=== PATIENT | female | born 1970 | race Hispanic/Latino ===

== ENCOUNTER 2017-06-23 11:13 | Emergency (ER) | payer SELFPAY ==
[~2017-06-23 11:13] MED LIST: Sodium Chloride 0.9% 1,000 ML BAG ONE; Sodium Chloride 0.9% 100 ML BAG ONE
[2017-06-23] MEDS ORDERED: Piperacillin/Tazobactam 3.375 GM VIAL ONE (11:36)
[2017-06-23 11:59] LABS: #Basophils 0.2 thou/uL (0.0-0.2); #Eosinphils 0.1 thou/uL (0.0-0.7); #Lymphocytes 2.3 thou/uL (1.20-3.40); #Monocytes 0.8 thou/uL (0.11-0.59); %Basophils 1.2 % (0.0-1.0); %Eosinophils 0.9 % (0.0-10.0); %Lymphocytes 15.6 % (21.0-51.0); %Monocytes 5.6 % (0.0-10.0); %Neutrophils 76.6 % (42.0-75.0); Hemoglobin 14.1 g/dL (12.0-16.0); Mean Corpuscular Hemoglobin 30.6 pg (27.0-31.0); Mean Corpuscular Volume 89.8 fl (81.0-99.0); Mean Platelet Volume 10.1 fL (7.4-10.4); Platelet Count 370 thou/uL (130-400); RBC Distribution Width 10.5 % (11.5-14.5); Red Blood Cell (RBC) Count 4.61 mill/uL (4.20-5.40); White Blood Cell (WBC) Count 14.4 thou/uL (4.8-10.8)
--- NOTE | 2017-06-23 12:13 | RAD ---
LEFT FOOT THREE VIEWS: HISTORY: Left foot pain. Ulceration. Toe injury. FINDINGS: Soft tissue gas and swelling is evident about the great toe. There is erosion of the lateral margin of the distal tuft. Pes planus is apparent on the lateral view. Lisfranc joint alignment is anato shai. There is scattered osteophytosis. IMPRESSION: Osseous erosion involving the distal tuft of the left big toe is consistent with but not specific fo r osteomyelitis involvement, in the setting of infection. Clinical correlation regarding other sign s and symptoms of osteomyelitis is required. POS: RANDAL
[2017-06-23 12:15] LABS: ALT (SGPT) 14 U/L (8-55); AST (SGOT) 14 U/L (5-34); Albumin 3.4 g/dL (3.5-5.0); Alkaline Phosphatase 110 U/L (40-150); Anion Gap 16 mmol/L (10-20); BUN (Urea Nitrogen) 15 mg/dL (7.0-18.7); Bilirubin, Total 0.4 mg/dL (0.2-1.2); Calc. Creatinine Clearance 0 mL/min (70-130); Calcium 8.4 mg/dL (7.8-10.44); Carbon Dioxide 23 mmol/L (22-29); Chloride 99 mmol/L (98-107); Estimated GFR-MDRD 86; Globulin 3.7 g/dL (2.4-3.5); Glucose 380 mg/dL (70-105); Potassium 4.6 mmol/L (3.5-5.1); Protein, Total 7.1 g/dL (6.0-8.3); Sodium 133 mmol/L (136-145)
[2017-06-23 12:50] LABS: BHCG - Serum Negative (NEGATIVE); Pregs Control Background? CLEAR/WHITE (CLR/WHITE); Pregs Control Bar Appear? YES (CONTROL BAR)
[2017-06-23] MEDS ORDERED: Insulin Regular 300 UNITS/3 ML VIAL ONE (12:54)
[2017-06-23 13:20] LABS: Bilirubin Negative (Negative); Blood, Urine Trace (Negative); Clarity Clear (Clear); Glucose, Urine (Dipstick) 500 mg/dL (Negative); Leukocyte Negative (Negative); Nitrite Negative (Negative); Protein, Urine (Dipstick) Negative (Neg-Trace); Urobilinogen 0.2 mg/dL (0.2-1.0); pH, Urine 5.5 (5.0-9.0)
[2017-06-23 13:23] LABS: Bacteria/HPF Rare-Few HPF (None Seen); RBC/HPF 0-3 HPF (0-3); WBC/HPF 0-3 HPF (0-3); Yeast-All Forms Rare HPF (None Seen)
== END 2017-06-23 13:51 | disposition short-term general hospital (02) ==
LOC: MADERS 11:13
DX: L03.116 Cellulitis of left lower limb (principal); E11.9 Type 2 diabetes mellitus without complications
CPT/HCPCS: 36416; 80053; 81003; 81015; 84703; 85025; 87040; 96365; 96368; 96372; J1815; J2543; J3370; J7050

== ENCOUNTER 2018-06-14 08:55 | Emergency (ER) | payer MEDICAID, SELFPAY ==
[~2018-06-14 08:55] MED LIST changes: -Sodium Chloride 0.9% 100 ML BAG ONE
[2018-06-14] MEDS ORDERED: Sulfameth/Trimethoprim DS 800-160mg TAB ONE (10:17)
[2018-06-14] MEDS ORDERED: Clindamycin/D5W 600 mg/50 ml Premix Bag ONE (10:17)
[2018-06-14] MEDS ORDERED: Cephalexin 500 MG CAP ONE (10:17)
--- NOTE | 2018-06-14 10:25 | RAD ---
THREE VIEWS LEFT FOOT: Comparison: 06-23-17 Indication: History of puncture wound with fever. FINDINGS: There has been interval healing of the distal tuft erosion seen on the comparison study. No new activ e area of osteolysis is evident. Lisfranc alignment is preserved. No radiopaque foreign body is noted . Enthesopathic change is seen off of the calcaneus. Calcifications are seen in the soft tissues. IMPRESSION: No acute osseous abnormality. No radiopaque foreign body. POS: JANICE
[2018-06-14 10:49] LABS: Band 4 % (5-11); Lymphocytes 10 % (21-51); MDiff Complete? YES; Mean Corpuscular Hemoglobin 30.5 pg (27.0-31.0); Mean Corpuscular Volume 89.9 fL (78.0-98.0); Monocytes 2 % (0-10); Neutrophil 84 % (42-75); PLT Morphology Comment Appears Adequate; Platelet Count 340 thou/uL (130-400); RBC Distribution Width 10.6 % (11.5-14.5); Red Blood Cell (RBC) Count 4.25 mill/uL (4.20-5.40); White Blood Cell (WBC) Count 20.2 thou/uL (4.8-10.8)
[2018-06-14 10:50] LABS: ALT (SGPT) 13 U/L (8-55); AST (SGOT) 10 U/L (5-34); Albumin 3.2 g/dL (3.5-5.0); Alkaline Phosphatase 141 U/L (40-150); Anion Gap 14 mmol/L (10-20); BUN (Urea Nitrogen) 13 mg/dL (7.0-18.7); Bilirubin, Total 0.6 mg/dL (0.2-1.2); Calc. Creatinine Clearance 0 mL/min (70-130); Calcium 9.5 mg/dL (7.8-10.44); Carbon Dioxide 25 mmol/L (22-29); Chloride 97 mmol/L (98-107); Estimated GFR-MDRD 74; Globulin 4.7 g/dL (2.4-3.5); Glucose 385 mg/dL (70-105); Potassium 4.4 mmol/L (3.5-5.1); Protein, Total 7.9 g/dL (6.0-8.3); Sodium 132 mmol/L (136-145)
[2018-06-14] MEDS ORDERED: Insulin Regular 300 UNITS/3 ML VIAL ONE (11:29)
== END 2018-06-14 13:10 | disposition short-term general hospital (02) ==
LOC: MADERS 08:55
DX: S91.332A Puncture wound without foreign body, left foot, initial encounter (principal); L03.116 Cellulitis of left lower limb; E11.65 Type 2 diabetes mellitus with hyperglycemia; W22.8XXA Striking against or struck by other objects, initial encounter
CPT/HCPCS: 36416; 80053; 83605; 85025; 87040; 93005; 96365; 96375; J1815; J3490; J7050

== ENCOUNTER 2018-07-04 10:25 | Emergency (ER) | payer MEDICAID | END 2018-07-04 10:41 | disposition left against medical advice (07) | LOC: MADERS 10:25 | DX: Z53.21 Procedure and treatment not carried out due to patient leaving prior to being seen by health care provider (principal) ==

== ENCOUNTER 2018-12-26 10:30 | Emergency (ER) | payer MEDICAID, SELFPAY ==
--- NOTE | 2018-12-26 11:35 | RAD ---
RIGHT FOOT 3 VIEWS: Date: 12/26/18 HISTORY: Infection. FINDINGS: Bandage material overlies the great toe. There is very extensive soft tissue abnormal gas, including the first, second, third, and fourth toes extending to the level of the midfoot of the first and seco nd toes. Bony destructive changes noted involving the distal phalanx of the first toe with decreased soft tissue density possibly related to osteomyelitis. Minimal focal soft tissue swelling of the dist al second toe. IMPRESSION: Very extensive abnormal soft tissue gas involving the first, second, third, and fourth toes, extendin g to the midfoot at the level of the first and second toes. Some decreased soft tissue, as well as so me bony destructive changes of the distal phalanx of the great toe. Minimal focal soft tissue swellin g of the distal second toe. Findings are consistent with extensive soft tissue infection and possible associated residual osteomyelitis of the distal first toe. POS: OFF
[2018-12-26] MEDS ORDERED: Sodium Chloride 0.9% 1,000 ML ONE (11:36)
[2018-12-26] MEDS ORDERED: Sodium Chloride 0.9% 250 ML 250 ML ONE (11:36)
[2018-12-26] MEDS ORDERED: Sodium Chloride 0.9% 100 ML ONE (11:36)
[2018-12-26] MEDS ORDERED: Piperacillin/Tazobactam 4.5 GM VIAL ONE (11:36)
[2018-12-26 11:41] LABS: #Basophils 0.1 thou/uL (0.0-0.2); #Lymphocytes 1.7 thou/uL (1.20-3.40); #Monocytes 0.5 thou/uL (0.11-0.59); %Basophils 0.5 % (0.0-1.0); %Eosinophils 0.3 % (0.0-10.0); %Lymphocytes 9.2 % (21.0-51.0); %Monocytes 2.9 % (0.0-10.0); %Neutrophils 87.1 % (42.0-75.0); Hemoglobin 10.3 g/dL (12.0-16.0); Mean Corpuscular HGB CONC 32.2 g/dL (32.0-36.0); Mean Corpuscular Hemoglobin 28.7 pg (27.0-31.0); Mean Platelet Volume 6.6 fL (7.4-10.4); Platelet Count 416 thou/uL (130-400); White Blood Cell (WBC) Count 18.4 thou/uL (4.8-10.8)
[2018-12-26 11:55] LABS: ALT (SGPT) 20 U/L (8-55); AST (SGOT) 18 U/L (5-34); Albumin 2.7 g/dL (3.5-5.0); Alkaline Phosphatase 205 U/L (40-150); Anion Gap 14 mmol/L (10-20); BUN (Urea Nitrogen) 19 mg/dL (7.0-18.7); Bilirubin, Total 0.2 mg/dL (0.2-1.2); Calc. Creatinine Clearance 0 mL/min (70-130); Carbon Dioxide 28 mmol/L (22-29); Chloride 93 mmol/L (98-107); Estimated GFR-MDRD 74; Globulin 5.7 g/dL (2.4-3.5); Glucose 462 mg/dL (70-105); Potassium 4.6 mmol/L (3.5-5.1); Protein, Total 8.4 g/dL (6.0-8.3); Sodium 130 mmol/L (136-145)
[2018-12-26] MEDS ORDERED: Insulin Regular 300 UNITS/3 ML VIAL ONE (12:16)
[2018-12-26] MEDS ORDERED: Admixture Fee 1 EACH ONE (12:16)
[2018-12-26] MEDS ORDERED: Fentanyl 100 MCG/2 ML VIAL ONE (12:16)
== END 2018-12-26 15:34 | disposition short-term general hospital (02) ==
LOC: MADERS 10:30
DX: I96 Gangrene, not elsewhere classified (principal); M72.6 Necrotizing fasciitis; E11.65 Type 2 diabetes mellitus with hyperglycemia
CPT/HCPCS: 36415; 80053; 83605; 84484; 85025; 87040; 93005; 96361; 96365; 96366; 96375; J1815; J2543; J3010; J3370; J7050

== ENCOUNTER 2019-06-05 14:33 | Inpatient (IN) | payer SELFPAY ==
[~2019-06-05 14:33] MED LIST changes: +Sodium Chloride 0.9% 100 ML BAG ONE
[2019-06-05 15:46] LABS: #Basophils 0.1 thou/uL (0.0-0.2); #Eosinphils 0.2 thou/uL (0.0-0.7); #Lymphocytes 2.2 thou/uL (1.20-3.40); #Monocytes 0.5 thou/uL (0.11-0.59); #Neutrophils 4.7 thou/uL (1.40-6.50); %Basophils 1.4 % (0.0-1.0); %Eosinophils 2.1 % (0.0-10.0); %Lymphocytes 28.7 % (21.0-51.0); %Neutrophils 60.8 % (42.0-75.0); Hemoglobin 11.8 g/dL (12.0-16.0); Mean Corpuscular HGB CONC 32.5 g/dL (32.0-36.0); Mean Corpuscular Hemoglobin 28.7 pg (27.0-31.0); Mean Corpuscular Volume 88.2 fL (78.0-98.0); Mean Platelet Volume 6.6 fL (7.4-10.4); Platelet Count 456 thou/uL (130-400); RBC Distribution Width 11.5 % (11.5-14.5); Red Blood Cell (RBC) Count 4.12 mill/uL (4.20-5.40); White Blood Cell (WBC) Count 7.7 thou/uL (4.8-10.8)
--- NOTE | 2019-06-05 15:58 | RAD ---
RIGHT TIBIA AND FIBULA TWO VIEWS: Indications: Infection anterior lower leg. FINDINGS: Patient has a amputation at the distal tibia/fibular shaft. No focal lytic or destructive process. No plain film evidence of osteomyelitis. Bones are mildly oste openic with mild degenerative change at the knee. Soft tissues appear unremarkable. No evidence of so ft tissue gas. IMPRESSION: No plain film evidence of osteomyelitis. POS: [facility]
[2019-06-05 16:05] LABS: ALT (SGPT) 15 U/L (8-55); AST (SGOT) 11 U/L (5-34); Albumin 3.2 g/dL (3.5-5.0); Alkaline Phosphatase 109 U/L (40-150); Anion Gap 16 mmol/L (10-20); BUN (Urea Nitrogen) 17 mg/dL (7.0-18.7); Bilirubin, Total 0.2 mg/dL (0.2-1.2); Calc. Creatinine Clearance 0 mL/min (70-130); Calcium 9.6 mg/dL (7.8-10.44); Carbon Dioxide 26 mmol/L (22-29); Chloride 96 mmol/L (98-107); Estimated GFR-MDRD 51; Glucose 502 mg/dL (70-105); Potassium 4.9 mmol/L (3.5-5.1); Protein, Total 8.2 g/dL (6.0-8.3); Sodium 133 mmol/L (136-145)
[2019-06-05] MEDS ORDERED: Insulin Regular 300 UNITS/3 ML VIAL ONE (16:19)
[2019-06-05] MEDS ORDERED: Sodium Chloride 0.9% 250 ML 250 ML ONE (16:19)
[2019-06-05] MEDS ORDERED: Piperacillin/Tazobactam 3.375 GM VIAL ONE ×3 (16:19→20:16)
[2019-06-05] MEDS ORDERED: Acetaminophen ER (8hr) 650 MG TAB PO PRN (18:42)
[2019-06-05] MEDS ORDERED: Acetaminophen/Codeine 30-300mg Tablet PO PRN (18:43)
[2019-06-05] MEDS ORDERED: Dextrose 50% Abboject 50 ML SYRINGE SLOW IVP PRN (18:46)
[2019-06-05] MEDS ORDERED: Insulin Regular 300 UNITS/3 ML VIAL SC PRN (18:46)
[2019-06-05] MEDS ORDERED: Dextrose 5% in Water 1,000 ML IV PRN (18:46)
[2019-06-05] MEDS: Insulin Regular 300 UNITS/3 ML VIAL SC PRN ×3 (19:17→21:40)
[2019-06-05] MEDS ORDERED: Insulin Glargine 20 UNITS in Pre-Filled Syringe 1 EACH SC SCH (21:00)
[2019-06-05] MEDS: Piperacillin/Tazobactam 3.375 GM in Sodium Chloride 0.9% 100 ML IVPB SCH (21:30)
[2019-06-05] MEDS: Lantus 1000 UNITS/10 ML VIAL SC SCH (21:39)
[2019-06-06] MEDS: Piperacillin/Tazobactam 3.375 GM in Sodium Chloride 0.9% 100 ML IVPB SCH ×4 (04:35→21:26)
--- NOTE | 2019-06-06 07:24 | HP ---
PRIMARY CARE PHYSICIAN: Arlene Sellers MD REASON FOR ADMISSION: Infected wound, hyperglycemia, poorly controlled diabetes. HISTORY OF PRESENT ILLNESS AND HOSPITAL COURSE: Ms. Patrick is a 49-year-old female with history of poorly controlled diabetes, noncompliance to the medications and medical recommendations. The patient has significant history of nonhealing ulcers secondary to poorly controlled diabetes and noncompliance. She underwent status post right BKA few months ago for this secondary to nonhealing ulcer. The patient was initially seen in the clinic a week ago secondary to enlarging wound on the right knee. The patient reports that she is not using her walker nor crutches at home since her right BKA has healed up. She states that she is uncomfortable transferring herself with the use of the medical equipments. The patient transfers herself using her knees instead. She sustained skin abrasions in both anterior knees, but the right anterior knee wound got infected. When she initially presented to the clinic about a week ago, she was started on oral Bactrim. The patient presented to [facility] ER today with worsening wound. reports that the wound on the right anterior knee- is now draining with yellowish discharge. On initial evaluation at the ER, the patient was afebrile with stable vital signs. Her labs showed no significant leukocytosis with low sodium and elevated glucose at 502. The patient admits that she is noncompliant with her oral hypoglycemic agents and also stopped her insulin secondary to not feeling well, and inability to get the prescriptions due to financial constraints. After receiving 7 units of IV insulin in the ER, the patient's blood sugar went down to 404. The patient was subsequently admitted to [facility] for IV antibiotic treatment for right knee infection and leg cellulitis. Upon admission to the floor, blood sugar was 334. The patient reports no significant issues at this time. Denies chest pain, shortness of breath, pain, nor fever. When seen on the floor , the patient was with her 14-year-old son, who acts as her primary elementary esl teacher and track moving machine operator. PAST MEDICAL HISTORY: 1. Poorly controlled diabetes secondary to incomplete adherence to medications. 2. Anemia. 3. Recurrent nonhealing ulcers leading to amputation of the right foot, status post right BKA. 4. Dyslipidemia. 5. Hypertension. PAST SURGICAL HISTORY: Status post BKA in January 2019, [facility]. FAMILY HISTORY: Mother , diagnosed with diabetes. Father , diagnosed with alcohol abuse. The patient's spouse is alive, currently in alf. The patient has a 14-year- old son who lives with her and acts as her primary elementary esl teacher. SOCIAL HISTORY: The patient denies smoking, alcohol, or illicit drug use. Language, [place] Citizen speaking only. ALLERGIES: NKDA. MEDICATIONS: 1. Bactrim DS one tablet p.o. b.i.d. 2. The patient was previously on metformin 1000 mg b.i.d.. lisinopril 20 mg p.o. daily, glimepiride p.o. daily, but not been taking. She was also previously on; 1. Insulin Levemir 27 units daily. 2. Novolin 70/30 per [facility]SI. REVIEW OF SYSTEMS: GENERAL: Denies fever, chills. Reports general weakness and fatigue. HEENT: No acute visual changes or hearing changes. RESPIRATORY: No shortness of breath, pain with breathing, sputum production, or wheezing. CARDIAC: Denies chest pain, paroxysmal nocturnal dyspnea, dyspnea on exertion, or palpitations. GI: No nausea, vomiting, abdominal pain, diarrhea, constipation, or rectal bleeding. GENITOURINARY: No dysuria, hematuria, frequency, urgency, or incontinence. MUSCULOSKELETAL: Reports knee joint pains. No myalgias. SKIN: As per HPI. No other rashes. No pruritus. NEUROLOGIC: No focal numbness, focal weakness. No seizures. No tics or tremors. PSYCHIATRIC: Denies depressive symptoms, anxiety, insomnia, or hallucinations. PHYSICAL EXAMINATION: VITAL SIGNS: Blood pressure 133/66, temperature 97.8, pulse 104, respiratory rate 18, O2 saturations 96% on room air, weight 176 pounds and 9 ounces. GENERAL: The patient is awake, alert, and oriented x3. German-speaking only. Son acts as the track moving machine operator. Comfortable in bed. No acute respiratory distress. HEENT: Normocephalic, atraumatic. PERRL. Intact EOM. Anicteric sclerae. Oral mucosa is moist. NECK: Supple. No LAD. No JVD. No bruit. CHEST: Normal excursion. Clear to auscultation bilaterally. CARDIAC: Regular rhythm. Normal S1, S2. No murmurs. ABDOMEN: Flat, soft. Normoactive bowel sounds. Nondistended, nontender. No rebound or guarding. Negative CVA tenderness bilaterally. EXTREMITIES: Status post right BKA. Right anterior knee with scab wound measuring 6 x 10 with area of surrounding erythema with diffuse erythema and mild edema of the right distal leg up to the knee. The distal stump looks clean, dry and intact. Left anterior knee has small superficial skin abrasions. No signs of infection. Negative Homans signs. Negative edema. NEUROLOGIC: Nonfocal. DTRs 2+. Gait unable to ambulate. Memory normal. Cranial nerves intact. SKIN: As per HPI, moist and warm. Good skin turgor and elasticity. PSYCHIATRIC: Appropriate mood and affect. Oriented x3. DIAGNOSTIC DATA: X-ray of the right lower extremity was negative. No fracture , no foreign body. No signs of osteomyelitis by plain film per Radiology. LABORATORY DATA: WBC 7.7, hemoglobin 11.8, hematocrit 36.4, platelets 456. Sodium 133, potassium 4.9, chloride 96, BUN 17, creatinine 1.13, anion gap 16, estimated GFR 51, glucose 502, lactic acid 1.8, and calcium 9.6. Liver function tests within normal limits. Albumin 3.2. ASSESSMENT: 1. Right anterior knee abscess and cellulitis. 2. Diabetes type 2, poorly controlled. 3. History of noncompliance. 4. Gait abnormality secondary to imbalance. 5. History of nonhealing ulcers, status post below-knee amputation, right. 6. Poor social support. PLAN: 1. The patient is admitted to [place] for inpatient management of right knee abscesses/leg cellulitis, and poorly controlled diabetes secondary to poor medical compliance. 2. The patient was started on Zosyn for empiric treatment from the ER and will continue q.6 hours pending blood and wound culture results. The patient is afebrile. No significant evidence of bacteremia at this point. We will continue IVF hydration. Medications per home list is continued as well. 3. Accu-Chek q.1 for first 4 hours, then before meals and at bedtime. 4. Sliding scale with aggressive algorithm to include bedtime coverage with Humalog. 5. Serial lab monitoring. No evidence of ketoacidosis at this time, but we will continue to close monitor. Hypoglycemic precautions. 6. Diet, 2000 kilocalorie ADA. 7. Activity, to use rolling walker at all times. 8. PT evaluation and treat and wound care evaluation. 9. Plan is to continue IV antibiotic coverage and then may switch to p.o. once appropriate. We will refer to 7th grade social studies teacher for home resources. 10. GI prophylaxis with Protonix and DVT prophylaxis with Lovenox. 11. Further recommendations depending on the hospital course. 12. Code status: the patient reports full code. Job ID: [id number] MTDD
[2019-06-06 07:41] LABS: Anion Gap 13 mmol/L (10-20); BUN (Urea Nitrogen) 16 mg/dL (7.0-18.7); Calc. Creatinine Clearance 106 mL/min (70-130); Calcium 8.7 mg/dL (7.8-10.44); Carbon Dioxide 25 mmol/L (22-29); Chloride 102 mmol/L (98-107); Estimated GFR-MDRD 76; Glucose 230 mg/dL (70-105); Potassium 4.8 mmol/L (3.5-5.1); Sodium 135 mmol/L (136-145)
[2019-06-06] MEDS: Lisinopril 5 MG TAB PO SCH (08:03)
[2019-06-06] MEDS: glyBURIDE 5 MG TAB PO SCH ×2 (08:03→16:14)
[2019-06-06] MEDS: metFORMIN 500 MG TAB PO SCH ×2 (08:03→16:14)
[2019-06-06] MEDS: Aspirin 81 mg Enteric Coated Tablet PO SCH (08:10)
[2019-06-06] MEDS: Enoxaparin Sodium 40 MG/0.4 ML SYRINGE SC SCH (08:10)
[2019-06-06] MEDS: Insulin Regular 300 UNITS/3 ML VIAL SC PRN ×2 (08:14→12:12)
[2019-06-06] MEDS ORDERED: Ondansetron ODT 4 MG TAB SL PRN (09:13)
[2019-06-06] MEDS ORDERED: Sodium Chloride 0.9% 1,000 ML IV SCH (09:15)
[2019-06-06 12:17] LABS: Hemoglobin A1c 13.5 % (4.0-6.0)
[2019-06-06 13:54] LABS: Pregnancy Test - Urine (BHCG) Negative (Negative); Pregu Control Background? CLEAR/WHITE (CLR/WHITE); Pregu Control Bar Appear? YES (CONTROL BAR); Specific Gravity 1.014 (1.002-1.036)
[2019-06-06] MEDS: Lantus 1000 UNITS/10 ML VIAL SC SCH (21:31)
[2019-06-07] MEDS: Piperacillin/Tazobactam 3.375 GM in Sodium Chloride 0.9% 100 ML IVPB SCH ×4 (04:24→21:02)
[2019-06-07] MEDS: Lisinopril 5 MG TAB PO SCH (08:30)
[2019-06-07] MEDS: Saccharomyces boulardii 250 MG CAP PO SCH (08:31)
[2019-06-07] MEDS: glyBURIDE 5 MG TAB PO SCH ×2 (08:31→16:45)
[2019-06-07] MEDS: Aspirin 81 mg Enteric Coated Tablet PO SCH (08:31)
[2019-06-07] MEDS: metFORMIN 500 MG TAB PO SCH ×2 (08:31→16:46)
[2019-06-07] MEDS: Enoxaparin Sodium 40 MG/0.4 ML SYRINGE SC SCH (08:31)
[2019-06-07] MEDS: Insulin Regular 300 UNITS/3 ML VIAL SC PRN ×3 (08:32→16:42)
[2019-06-07] MEDS: Lantus 1000 UNITS/10 ML VIAL SC SCH (21:03)
[2019-06-08] MEDS: Piperacillin/Tazobactam 3.375 GM in Sodium Chloride 0.9% 100 ML IVPB SCH (03:46)
[2019-06-08] MEDS: metFORMIN 500 MG TAB PO SCH ×2 (08:37→16:46)
[2019-06-08] MEDS: glyBURIDE 5 MG TAB PO SCH ×2 (08:37→16:46)
[2019-06-08] MEDS: Enoxaparin Sodium 40 MG/0.4 ML SYRINGE SC SCH (08:38)
[2019-06-08] MEDS: Saccharomyces boulardii 250 MG CAP PO SCH (08:38)
[2019-06-08] MEDS: Lisinopril 5 MG TAB PO SCH (08:38)
[2019-06-08] MEDS: Aspirin 81 mg Enteric Coated Tablet PO SCH (08:38)
[2019-06-08] MEDS: Insulin Regular 300 UNITS/3 ML VIAL SC PRN ×2 (08:39→11:51)
[2019-06-08] MEDS: Lantus 1000 UNITS/10 ML VIAL SC SCH (20:43)
[2019-06-09] MEDS: Lisinopril 5 MG TAB PO SCH (08:38)
[2019-06-09] MEDS: Saccharomyces boulardii 250 MG CAP PO SCH (08:38)
[2019-06-09] MEDS: Enoxaparin Sodium 40 MG/0.4 ML SYRINGE SC SCH (08:39)
[2019-06-09] MEDS: Aspirin 81 mg Enteric Coated Tablet PO SCH (08:39)
[2019-06-09] MEDS: metFORMIN 500 MG TAB PO SCH (08:39)
[2019-06-09] MEDS: glyBURIDE 5 MG TAB PO SCH (08:39)
[2019-06-09 10:04] VITALS: BMI 30.9
[2019-06-09] MEDS: Insulin Regular 300 UNITS/3 ML VIAL SC PRN (12:07)
[2019-06-09 12:34] VITALS: BP 141/82; TEMP 97.2
--- NOTE | 2019-06-10 02:49 | DIS ---
DATE OF ADMISSION: 06/05/2019 DATE OF DISCHARGE: 06/09/2019 PRIMARY CARE PHYSICIAN: Arlene Sellers MD DISCHARGE DIAGNOSES: 1. Left lower leg abscess/cellulitis, infected with methicillin-susceptible Staphylococcus aureus. 2. Diabetes, poorly controlled. 3. Medical noncompliance. 4. Abnormality of gait. 5. History of below-knee amputation secondary to nonhealing ulcer of the left foot. CONDITION ON DISCHARGE: Stable. DISPOSITION: Home with son. MEDICATIONS: 1. Cipro 500 mg p.o. b.i.d. 2. Levemir 20 units subcu daily. 3. Metformin 1000 mg p.o. b.i.d. 4. Glipizide 5 mg p.o. daily. 5. Lisinopril 5 mg p.o. daily. 6. Continue previous home medication of Bactrim DS , 1 atblet p.o. BID. DISCHARGE INSTRUCTIONS: 1. Diet: 2000 kilocalorie ADA. 2. Activity: To use rolling and/or wheelchair for ambulation. 3. Fall precautions. 4. Wound care with saline solution and Xeroform covered with Kerlix and Lamont wrap every Wednesday, Wednesday, and Wednesday. 5. Followup: Follow up with Dr. Sellers in 1 week, sooner with concerns. 6. ER precautions. HISTORY OF THE PRESENT ILLNESS AND HOSPITAL COURSE: Ms. Patrick is a 49-year- old female with history of poorly-controlled diabetes, history of noncompliance to medications, and medical recommendations secondary to poor social support and financial constraints. The patient has significant history of nonhealing ulcer secondary to poorly-controlled diabetes. She has had right BKA a few months ago prior to admission secondary to nonhealing ulcer of the foot. The patient reported that since she did well with her BKA, she had been using her knees to ambulate at home as she is tired of using her walker and crutches. The patient developed a skin abrasion on both knees, right greater than the left. The right wound has become infected. She was initially seen in the clinic a week prior to this admission and was started on Bactrim. The patient went back to [facility] ER on 06/05/2019 as the wound has worsened and has drained yellowish mucopurulent discharge associated with swelling and redness of the right lower leg. The patient was subsequently admitted to [facility] for IV antibiotic therapy. She was started on Zosyn. Her oral hypoglycemic agents and long acting basal insulin were continued while in the hospital. Her blood sugar has been much controlled while on current medications. Her wound culture came back positive for MSSA, resistant to Zosyn, but sensitive to Bactrim and Levaquin/ Cipro. The patient's IV antibiotic was switched to IV Levaquin and was started on oral Cipro upon discharge. She is recommended to continue her previous prescription of Bactrim as well. Recommended routine wound care as per instructions above. She is also highly encouraged to start back on her medications for diabetes, both the oral hypoglycemic agents and insulin for which she agreed. She will follow up with PCP in 1 week. The [facility] was [facility]. Vital signs prior to discharge; Blood pressure 141/82, pulse 90, respirations 18 , temperature 97.2, O2 saturations 97% on room air. Weight 174 pounds and 4 ounces. Height 5 feet 3 inches. Job ID: [id number] [facility]
--- NOTE | 2019-06-13 10:51 | PQF ---
[employer] Vice [employer] Winform ViewerRamirez MYRIAM Meraz MD [id number] CLINICAL DOCUMENTATION CLARIFICATION FORM: POST DISCHARGE Addendum to original discharge summary date: ____ Late entry note date: __ DATE: 06/13/2019 ATTN: MYRIAM NGUYEN MD Please exercise your independent, professional judgment in responding to the clarification form. Clinical indicators are provided on the bottom of this form for your review Please check appropriate box(s): [ ] Cellulitis due to diabetes mellitus [ ] Cellulitis not due to Diabetes mellitus [ X ] Other diagnosis cellulitis from skin abrasion of right knee sustained from friction using using the knees for ambulation. [ ] Unable to determine For continuity of documentation, please document condition throughout progress notes and discharge summary. Thank You. CLINICAL INDICATORS - SIGNS / SYMPTOMS / LABS - Left lower leg abscess/cellulitis, infected with MSSA- DS, 06/09, MYRIAM NGUYEN MD - Hx of poorly-controlled diabetes, noncompliance to medications-DS, 06/09, MYRIAM NGUYEN MD - Diabetes poorly controlled-, 06/09, MYRIAM NGUYEN MD - hx of non healing ulcer sec to poorly controlled diabetes- DS, 06/09, MYRIAM NGUYEN MD RISKS: - Hx of BKA sec to non healing ulcer of the left foot- DS, 06/09, MYRIAM NGUYEN MD - Skin abrasions on both knees, right greater than the left- Ds, 06/09, MYRIAM NGUYEN MD TREATMENT: - Insulin regular-06/05 - Zosyn.IV-06/05 (This form is maintained as a part of the permanent medical record) 2014 [employer]. All Rights Reserved Shawna Celis [not provided] [not provided] MTDD
== END 2019-06-09 18:31 | disposition home or self-care (01) | DRG 603 ==
LOC: MADERS 14:33 → MADMS 17:34
PROVIDERS: ADMIT Family Medicine; ATTEND Family Medicine
DX: L03.116 Cellulitis of left lower limb (principal); L02.415 Cutaneous abscess of right lower limb; E11.65 Type 2 diabetes mellitus with hyperglycemia; B95.61 Methicillin susceptible Staphylococcus aureus infection as the cause of diseases classified elsewhere; R26.9 Unspecified abnormalities of gait and mobility; D64.9 Anemia, unspecified; E78.5 Hyperlipidemia, unspecified; I10 Essential (primary) hypertension; Z91.14 Patient's other noncompliance with medication regimen; Z89.512 Acquired absence of left leg below knee; Z99.3 Dependence on wheelchair; Z79.4 Long term (current) use of insulin
CPT/HCPCS: 36415; 36416; 80048; 80053; 81025; 83036; 83605; 85025; 87040; 87070; 87077; 87186; 87205; 96361; 96365; 96375; 97602; J1650; J1815; J1956; J2543; J3490; J7050